=== PATIENT | female | born 1990 | race Asian ===

== ENCOUNTER 2016-08-28 17:59 | Emergency (ER) | payer OTHER ==
[2016-08-28 18:27] VITALS: O2SAT 98
[2016-08-28] MEDS ORDERED: DEXAMETHASONE 4 MG TAB PO ONE (19:14)
--- NOTE | 2016-08-28 19:41 | EDPHY ---
H & P Stated Complaint: Sore throat and fever. HPI/ROS: Chief complaint: Fever and sore throat History of present illness: This is a 26-year-old female presents to the emergency department for evaluation of fever and a sore throat. Patient reports the onset of symptoms approximately 2 weeks ago. She states her doctor diagnosed her with a tonsillitis and placed her on a course of Augmentin. She states she got better but upon finishing the course of Augmentin symptoms have returned. She follow-up with her primary care doctor again and has been placed back on Augmentin. She is concerned however that symptoms persist. She states she sees her tonsils are very swollen and sees a lot of pustular discharge on them. She denies other associated signs or symptoms including no difficulty swallowing, no difficulty talking, no cough, no trouble breathing, no rash. - Personal History LMP (Females 10-55): 8-14 Days Ago Current Tetanus/Diphtheria Vaccine: Yes Current Tetanus Diphtheria and Acellular Pertussis (TDAP): Yes - Medical/Surgical History Hx Asthma: No Hx Chronic Respiratory Disease: No Hx Diabetes: No Hx Cardiac Disease: No Hx Renal Disease: No Hx Cirrhosis: No Hx Alcoholism: No Hx HIV/AIDS: No Hx Splenectomy or Spleen Trauma: No Other PMH: Denies. Patient states she is not . - Social History Smoking Status: Never smoked - Physical Exam Exam: General Appearance: Alert, nontoxic. Eyes: Pupils equal and round no injection. ENT: Tympanic membranes, external auditory canals, external ears and surrounding soft tissue including over the mastoids are unremarkable. Nasopharynx is not injected. There is no rhinorrhea. Oropharynx is mildly injected. There is no edema. Tonsillar hypertrophy with pustular discharge on the tonsils. There is no asymmetry. The uvula is midline. No elevation of the tongue. There is no hoarseness, no drooling, no trismus, no stridor. Respiratory: Chest is non tender, lungs are clear to auscultation. Cardiac: regular rate and rhythm Musculoskeletal: Neck is supple and non tender. Extremities have full range of motion and are non tender. Skin: No rashes or lesions. Neurological: Alert and oriented x4. No meningismus. Constitutional: Initial Vital Signs Heart Rate 111 H 08/28/16 18:24 Respiratory Rate 17 08/28/16 18:24 Blood Pressure 91/61 L 08/28/16 18:24 O2 Sat (%) 98 08/28/16 18:24 O2 Delivery Mode Room Air Allergies/Adverse Reactions: No Known Allergies Allergy (Unverified 08/28/16 18:23) Home Medications: Medication Instructions Recorded NK [No Known Home Meds] 08/28/16 Medical Decision Making ED Course/Re-evaluation: Patient seen under the supervision of my primary supervising physician Dr. Colleen Parra. Patient presents to the emergency department for a sore throat. Patient appears to have a tonsillitis. No evidence of complications such as abscess formation or meningitis. Patient is given Decadron for symptom control. She is asked to continue the Augmentin she has been prescribed for treatment. She is referred to [facility] for continued evaluation and care. Strict return precautions are given. Patient voiced understanding and agreement with plan. Differential Diagnosis: Included but not limited to tonsillitis, pharyngitis, abscess formation, meningitis - Data Points Laboratory Results: 08/28/16 08/28/16 08/28/16 Unknown 19:05 19:01 Monoscreen NEGATIVE (NEGATIVE) Group A Strep Screen NEGATIVE (NEGATIVE) Group A Strep DNA Pending Medications Given: Discontinued Medications Dexamethasone (Decadron) 10 mg PO EDNOW ONE Stop: 08/28/16 19:15 Last Admin: 08/28/16 19:27 Dose: 10 mg Departure - Departure Disposition: Home, Routine, Self-Care Clinical Impression: Acute tonsillitis Qualifiers: Pharyngitis/tonsillitis etiology: unspecified etiology Qualified Code(s): J03.90 - Acute tonsillitis, unspecified Condition: Good Instructions: Dexamethasone (By mouth), Tonsillitis (ED) Additional Instructions: Follow-up with an ears Nose and Throat doctor for continued evaluation and care Take your Augmentin as prescribed until finished Use ibuprofen 600 mg 3 times a day for the next 2-3 days for pain and swelling If symptoms worsen or new symptoms develop return to the emergency room for recheck Referrals: NONE *PRIMARY CARE P,. [Primary Care Provider] - As per Instructions Annabelle Phillips MD [Medical Doctor] - As per Instructions
[2016-08-28 19:53] VITALS: BP 110/71; PULSE 80; RESP 14; TEMP 97.9
== END 2016-08-28 19:51 | disposition home or self-care (01) ==
DX: J03.90 Acute tonsillitis, unspecified (principal)